=== PATIENT | female | born 1965 | race Two or more races ===

== ENCOUNTER → 2019-07-03 | Emergency (ER) | payer BC, OTHER ==
--- NOTE | 2019-07-03 11:19 | NUR ---
ED Nurse Note: pt. LWBS
--- NOTE | 2019-07-03 12:26 | Emergency Room Report ---
Medical Decision Making ER Course PATIENT LEFT WITHOUT BEING SEEN Disposition: LEFT W/OUT BEING SEEN Condition: Unknown Referrals: NOT CHOSEN IPA/,REFERRING (PCP) Ashish Kuo MD Jul 03, 2019 12:25
== END | disposition left against medical advice (07) ==
LOC: EMR 11:34
DX: Z53.21 Procedure and treatment not carried out due to patient leaving prior to being seen by health care provider (principal)